=== PATIENT | male | born 1935 | race Caucasian/White ===

== ENCOUNTER 2018-02-08 02:01 | Inpatient (IN) ==
--- NOTE | 2018-02-08 02:43 | ED ---
HPI General Chief complaint: Extremity Problem,Nontraumatic Stated complaint: transfer from [facility]/medical Time Seen by Provider: 02/08/18 02:20 Source: patient History of Present Illness HPI narrative: The patient is an 82 year old male who presents to the [facility] emergency department with a history of developing foot pain after returning from dinner last night. The patient reports that the pain became gradually worse with time until it was severe. 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 He reports that he had another procedure to his vasculature of the left leg a few months later. He reports that the first procedure was done in May and since then he has had chronic numbness to the left foot. He reports that his vascular surgeon is Dr. Cantu. The patient reports that he went to [facility] emergency department regarding the symptoms and was diagnosed with an arterial occlusion. Dr. Cantu was called and explained that he is on vacation and would need the patient transferred someplace where another vascular surgeon is practicing. The patient was accepted in transfer by Dr. Diaz, the vascular surgeon vegetable scullion. Prior to arrival, the patient was placed on heparin as a drip and was continued on this medication in route to this facility. On review of systems otherwise, the patient denies having any known recent fevers, cough, congestion, neck pain, chest pain, shortness of breath, abdominal pain, vomiting , diarrhea, urinary symptoms, or other neurologic symptoms. Related Data Home Medications Medication Instructions Recorded Confirmed aspirin 81 mg PO DAILY 02/08/18 02/08/18 clopidogrel [Plavix] 75 mg PO DAILY 02/08/18 02/08/18 lisinopril 10 mg PO DAILY 02/08/18 02/08/18 rosuvastatin [Crestor] 5 mg PO DAILY 02/08/18 02/08/18 sertraline [Zoloft] 25 mg PO DAILY 02/08/18 02/08/18 Allergies Allergy/AdvReac Type Severity Reaction Status Date / Time No Known Allergies Allergy Verified 02/08/18 02:07 Review of Systems ROS: all other systems reviewed are negative [facility] Medical History Medical History CAD (coronary artery disease) (Acute) COPD (chronic obstructive pulmonary disease) (Acute) CVA (cerebral vascular accident) (Acute) Hyperlipidemia (Acute) Hypertension (Acute) MRSA (methicillin resistant Staphylococcus aureus) (Acute) PAD (peripheral artery disease) (Acute) PNA (pneumonia) (Acute) Thyroid disorder (Acute) Surgical History Surgical History H/O vasectomy (Acute) History of esophagogastroduodenoscopy (EGD) (Acute) History of herniorrhaphy (Acute) Stented coronary artery (Acute) Family History Family History Other Diabetes mellitus Social History Social History Substance History: No History of Abuse Smoking Status: Former smoker How Often Do You Have a Drink Containing Alcohol: 2 to 4 times a month Recent Travel in [facility] within the Last 8 Weeks: No Recent Out of Country Travel within the Last 8 Weeks: No Immunization History Tetanus Immunization: Unsure Exam Narrative Exam Narrative: He denies having any pain in his foot currently. Const General: cooperative, no acute distress and well developed Nutritional Appearance: well nourished Orientation: alert, awake and oriented x3 [facility] Head: normocephalic and atraumatic Nose: no nasal discharge and no epistaxis Mouth: moist mucous membranes Eyes Sclera: normal sclerae Pupils: PERRL Neck Neck: no meningeal signs, trachea midline and no JVD Resp Effort & Inspection: no use of accessory muscles Auscultation: clear to auscultation bilaterally Cardio Rate: regular rate Rhythm: regular rhythm Heart Sounds: no murmurs GI Inspection: non-distended Palpation: soft, no hepatosplenomegaly and nontender Skin General: dry skin (warm) Neuro General: alert, awake, oriented x3 and other (Grossly nonfocal. ) Speech: speech normal Motor: no movement abnormalities noted Extrem General: no calf tenderness, no clubbing, no cyanosis, no edema and other (On examination of the patient's bilateral feet the left foot is more pale compared to the right. The patient has no palpable pulse in the dorsalis pedis or posterior tibial on the left. The patient has a palpable pulse in the right foot. The patient denies having any significant pain. A Doppler was done of the foot. The patient has no dopplerable pulse of the dorsalis pedis, however there is a pulse audible with Doppler in the posterior tibial. Patient's cap refill is prolonged in the left foot compared to the right.) Psych Mood: congruent mood Affect: normal affect Judgment: judgment good Course Consultations Consultation #1: The patient's case including history, pertinent physical examination findings, and laboratory studies were discussed with Dr. Diaz, the vascular surgeon who accepted the patient in transfer from [facility]. He requested that the patient be admitted to the hospitalist service and he will see the patient in consultation. Time: 02:38 Initial Documented Vital Signs Temperature 98.5 F 02/08/18 02:07 Pulse Rate 60 02/08/18 02:07 Respiratory Rate 16 02/08/18 02:07 Blood Pressure 184/93 H 02/08/18 02:07 Pulse Oximetry 96 02/08/18 02:07 Last Documented Vital Signs Temperature 97.6 F 02/08/18 16:00 Pulse Rate 55 L 02/08/18 16:00 Respiratory Rate 16 02/08/18 16:00 Blood Pressure 137/73 02/08/18 16:00 Pulse Oximetry 93 L 02/08/18 16:00 Medical Decision Making MDM Narrative Medical decision making narrative: During the course of the patient's emergency department visit, the patient's history, examination, and differential diagnosis were reviewed with the patient. The patient was placed on a cardiac rehabilitation program director with oximetry and frequent blood pressure monitoring. The patient had IV access obtained and blood work sent for analysis. A diagnostic evaluation was started regarding the patient's pallor to the left foot with loss of pulse to the dorsalis pedis. The patient's records from the other facility were reviewed. The patient had a CBC at [facility] that showed a white count of 8, hemoglobin 13.9, platelets 144, BMP is remarkable for sodium of 139, potassium 3.8, chloride 100, CO2 25, BUN 19 , creatinine 0.76, PT 13.9, INR 1.2, PTT 33.4, liver function tests were within normal limits. The patient is on a heparin drip currently. The patient had a Doppler of his pulses of the left foot done which revealed a dopplerable pulse of the posterior tibial, however no dopplerable pulse of the dorsalis pedis. A call was placed out to who did agree to see the patient in consultation requested that the patient be admitted to the hospitalist service. Dr. Feezor requested that no additional imaging be ordered at this time until he sees the patient and decides how to proceed. The patient's case including history, pertinent physical examination findings, and laboratory studies were discussed with Dr. Vargas. It was agreed that the patient would be admitted to the hospitalist service. The patient's results were discussed with the patient, including the plan of care. I explained that further testing and/ or monitoring is indicated based on the patient's history, examination, and/ or laboratory findings. Therefore, I recommended admission for additional evaluation. The patient expressed understanding and was agreeable with this plan. The patient was admitted to the hospital in guarded condition and sent to a bed under the care of the [facility] service. Medical Screen Exam Complete: Yes Emergency Medical Condition: Yes Differential Diagnosis Differential Diagnosis: Peripheral arterial thrombosis, versus emboli, versus partial occlusion Medical Records Medical records reviewed: Yes I reviewed the patient's medical records. Lab Data Lab results reviewed: Yes I reviewed the patient's lab results. Result diagrams: 02/08/18 09:15 Lab Results 02/08/18 02/08/18 02/08/18 Range/Units 04:35 09:15 10:03 PT 12.0 H (9.8-11.6) sec INR 1.2 Ratio APTT 83.0 H 111.1 H* D (23.4-31.7) sec Sodium 137 (136-145) meq/L Potassium 4.1 (3.5-5.1) meq/L Chloride 108 H (98-107) meq/L Carbon Dioxide 21.1 (21.0-32.0) meq/L Anion Gap 8 (5-15) meq/L BUN 16 (7-18) mg/dL Creatinine 0.72 (0.60-1.30) mg/dL Estimated GFR Greater than 89 (>89) mL/min Random Glucose 78 (74-106) mg/dL Calcium 7.9 L (8.5-10.1) mg/dL Imaging Data Radiologist's impression: Lower Extremity Ultrasound 02/08/18 00:00 CONCLUSION: 1. Venous mapping as above. Venous Doppler Study 02/08/18 00:00 CONCLUSION: 1. No evidence of DVT. Discharge Plan Discharge Disposition Patient Disposition: ED Admit(ED Internal Use Only) Discharge Order Discharge Orders: ED Use Only Admit Order (Routine); Ordered 02/08/18 Ordered By: Bita Goncalves Discharge Details Diagnosis: Peripheral artery occlusion Physicians Team ED Provider: Bita Goncalves Attending Provider: Carla Garrett Other Providers: Diogenes Diaz Status ED Status: Left Department Discharge Information Discharge Date/Time: 02/08/18 06:35
[2018-02-08] MEDS ORDERED: Morphine Inj 4 MG/ML Vial IV.PUSH PRN (04:21)
[2018-02-08] MEDS ORDERED: Bisacodyl 10 MG Supp RECTAL PRN (04:22)
[2018-02-08] MEDS ORDERED: Acetaminophen 325 MG Tablet PO PRN (04:22)
[2018-02-08] MEDS: Heparin Drip 25,000 UNIT/250 ML BAG IV.CONT PRN ×2 (04:36→15:00)
[2018-02-08] MEDS: Sod Chloride 0.9% Inj 1,000 ML IV.CONT SCH ×2 (04:36→19:44)
--- NOTE | 2018-02-08 04:37 | P.HP ---
History of Present Illness Service: [facility] Primary Care Physician: Kayleigh Lewis History of Present Illness: 82-year-old male with a past medical history significant for, hypertension and hyperlipidemia presents to the emergency department as a transfer from [facility] for the evaluation of left foot pain. The patient has a history of left popliteal aneurysm rupture that was urgently repaired in [place] [address] Walter Cantu. The patient is unsure of exactly what was done but knows he had a bypass and believes it is a femoropopliteal bypass. He reports that yesterday evening when he was walking in from having dinner he developed acute onset left sided foot pain that was unbearable. His daughter who is an ER nurse, evaluated his foot and stated that it was cold, white and there was no DP pulse. The patient and his family believes that he had palpable pulses prior to this incident. The patient states the pain in his foot has subsided. He has full range of motion of the toes ankle and calf. He denies any other associated symptoms such as chest pain or shortness of breath. No abdominal pain. No nausea/vomiting/diarrhea. No fever/chills. Inpatient Certification: I certify that the inpatient services were ordered in accordance with Medicare regulations governing the order. 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 - Medical History Medical History: Medical History (Last Reviewed 02/08/18 @ 02:41 by Bita Goncalves MD) CAD (coronary artery disease) COPD (chronic obstructive pulmonary disease) CVA (cerebral vascular accident) Hyperlipidemia Hypertension MRSA (methicillin resistant Staphylococcus aureus) PAD (peripheral artery disease) PNA (pneumonia) Thyroid disorder - Surgical History Surgical History: Surgical History (Last Updated 02/08/18 @ 04:30 by Ayesha Vargas MD) H/O vasectomy History of esophagogastroduodenoscopy (EGD) History of herniorrhaphy Status post femoral-popliteal bypass surgery Stented coronary artery - Family History Family History: Family History (Last Updated 02/08/18 @ 04:30 by Ayesha Vargas MD) Other Diabetes mellitus - Tobacco History Smoking Status: Former smoker - Alcohol History How Often Do You Have a Drink Containing Alcohol: 2 to 4 times a month - Substance Use History Substance History: No History of Abuse - Travel History Recent Travel in the [place] Within the Last 8 Weeks: No Recent Travel Out of the Country Within the Last 8 Weeks: No - Immunization History Tetanus Immunization: Unsure Medications and Allergies Active Medications: Active Medications Heparin Sodium/Dextrose (Heparin/D5w 25,000 U/250 Ml) 25,000 unit in 250 mls @ 0 mls/hr IV.CONT TITRATE PRN; Protocol PRN Reason: Per Protocol Allergies Allergy/AdvReac Type Severity Reaction Status Date / Time No Known Allergies Allergy Verified 02/08/18 02:07 Home Medications Medication Instructions Recorded Confirmed Type aspirin 81 mg PO DAILY 02/08/18 02/08/18 History clopidogrel [Plavix] 75 mg PO DAILY 02/08/18 02/08/18 History lisinopril 10 mg PO DAILY 02/08/18 02/08/18 History rosuvastatin [Crestor] 5 mg PO DAILY 02/08/18 02/08/18 History sertraline [Zoloft] 25 mg PO DAILY 02/08/18 02/08/18 History Exam Vital signs: Vital Signs 02/08/18 02:07 Temperature 98.5 F Pulse Rate 60 Respiratory Rate 16 Blood Pressure 184/93 H Pulse Oximetry 96 Intake & Output 02/07/18 02/07/18 02/08/18 06:59 18:59 06:59 Weight 61.235 kg Narrative: Gen.: No acute distress Head: Normocephalic. Atraumatic. EENT: Pupils equal round and reactive to light. Nose without drainage. Airway intact. Throat without injection. Cardiovascular: Regular rate and rhythm. No murmurs, rubs or gallops. Respiratory: Lungs clear to auscultation bilaterally. No wheezes or rhonchi. Abdomen: Soft, nontender, nondistended. No peritoneal signs. Musculoskeletal: No gross deformities. No edema. Left foot mildly pale. No Dopplerable or palpable DP pulse. Full range of motion of the foot and left lower extremity. Skin: No obvious rashes or erythema. Neuro: Sensory and motor grossly intact. Cranial nerves II through XII grossly intact. Caprini VTE Risk Assessment Caprini VTE Risk Assessment: Moderate/High Risk (score >= 2) Caprini Risk Assessment Model: Point Value = 1 Point Value = 2 Point Value = 3 Point Value = 5 Age 41-60 Minor surgery BMI > 25 kg/m2 Swollen legs Varicose veins or History of unexplained or recurrent spontaneous Oral contraceptives or hormone replacement Sepsis (< 1 month) Serious lung disease, including pneumonia (< 1 month) Abnormal pulmonary function Acute myocardial infarction Congestive heart failure (< 1 month) History of inflammatory bowel disease Medical patient at bed rest Age 61-74 Arthroscopic surgery Major open surgery (> 45 min) Laparoscopic surgery (> 45 min) Malignancy Confined to bed (> 72 hours) Immobilizing plaster cast Central venous access Age >= 75 History of VTE Family history of VTE Factor V Leiden Prothrombin [id number] Lupus anticoagulant Anticardiolipin antibodies Elevated serum homocysteine Heparin-induced thrombocytopenia Other congenital or acquired thrombophilia Stroke (< 1 month) Elective arthroplasty Hip, pelvis, or leg fracture Acute spinal cord injury (< 1 month) Prophylaxis Regimen: Total Risk Factor Score Risk Level Prophylaxis Regimen 0-1 Low Early ambulation 2 Moderate Order ONE of the following: *Sequential Compression Device (SCD) *Heparin 5000 units SQ BID 3-4 Higher Order ONE of the following medications: *Heparin 5000 units SQ TID *Enoxaparin/Lovenox 40 mg SQ daily (WT < 150 kg, CrCl > 30 mL/min) *Enoxaparin/Lovenox 30 mg SQ daily (WT < 150 kg, CrCl > 10-29 mL/min) *Enoxaparin/Lovenox 30 mg SQ BID (WT < 150 kg, CrCl > 30 mL/min) AND/OR *Sequential Compression Device (SCD) 5 or more Highest Order ONE of the following medications: *Heparin 5000 units SQ TID (Preferred with Epidurals) *Enoxaparin/Lovenox 40 mg SQ daily (WT < 150 kg, CrCl > 30 mL/min) *Enoxaparin/Lovenox 30 mg SQ daily (WT < 150 kg, CrCl > 10-29 mL/min) *Enoxaparin/Lovenox 30 mg SQ BID (WT < 150 kg, CrCl > 30 mL/min) AND *Sequential Compression Device (SCD) Assessment and Plan - Plan Assessment/plan: 1. Left foot pain/pallor Concern for arterial occlusion given patient's history of left lower extremity bypass surgery in May 2017 Vascular surgery consulted, appreciate assistance Per Dr. Diaz's recommendations, no additional imaging studies will be done at this time Heparin drip per vascular surgery recommendations 2. Coronary artery disease Status post stent placement in 2004 Holding aspirin and Plavix until cleared by vascular surgery 3. Hypertension/hyperlipidemia Continue home lisinopril and Crestor FEN N.p.o. NS at 70 cc/hour Electrolytes: Reviewed from lab work done at [facility], will continue to monitor Heparin drip
[2018-02-08 05:01] LABS: INR 1.2 Ratio
--- NOTE | 2018-02-08 07:36 | P.CONVS ---
History of Present Illness Service: vascular surgery Consult date: 02/08/18 Reason for Consult: L LE ischemia Primary Care Provider: Kayleigh Lewis Chief Complaint: 82 yo man with L LE pain History of Present Illness: 82 yo male with L LE bypass (surgically revised x 1) earlier in 2018 for popliteal aneurysm who had abrupt onset of L LE pain last night. motor intact. Presented to OSH and transferred up on hep gtt. At present no foot pain but had pain meds last night and hasn't ambulated yet. Has been told that he had AAA duplex that was negative. 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 - Medical History Medical History: Medical History (Last Reviewed 02/08/18 @ 07:32 by Diogenes Diaz MD) CAD (coronary artery disease) Hyperlipidemia Hypertension PAD (peripheral artery disease) - Surgical History Surgical History: Surgical History (Last Reviewed 02/08/18 @ 07:32 by Diogenes Diaz MD) H/O vasectomy History of esophagogastroduodenoscopy (EGD) History of herniorrhaphy Status post femoral-popliteal bypass surgery Stented coronary artery - Family History Family History: Family History (Last Updated 02/08/18 @ 04:30 by Ayesha Vargas MD) Other Diabetes mellitus - Tobacco History Smoking Status: Former smoker - Alcohol History How Often Do You Have a Drink Containing Alcohol: 2 to 4 times a month - Substance Use History Substance History: No History of Abuse - Travel History Recent Travel in the [place] Within the Last 8 Weeks: No Recent Travel Out of the Country Within the Last 8 Weeks: No - Immunization History Tetanus Immunization: Unsure Medications and Allergies Active Medications: Active Medications Acetaminophen (Tylenol) 650 mg PO Q4H PRN PRN Reason: Temp > 100.4 Al Hydroxide/Mg Hydroxide (Milk Of Magnmarnie Liq) 30 ml PO Q12H PRN PRN Reason: Mild Constipation Atorvastatin Calcium (Lipitor) 10 mg PO DAILY ZHAO Bisacodyl (Dulcolax Supp) 10 mg RECTAL DAILY PRN PRN Reason: SEVERE CONSITIPATION Heparin Sodium/Dextrose (Heparin/D5w 25,000 U/250 Ml) 25,000 unit in 250 mls @ 0 mls/hr IV.CONT TITRATE PRN; Protocol PRN Reason: Per Protocol Last Titration: 02/08/18 06:28 Dose: 900 units/hr, 9 mls/hr Sodium Chloride (Ns Inj) 1,000 mls @ 70 mls/hr IV.CONT .[id number] [facility] Last Admin: 02/08/18 04:36 Dose: 70 mls/hr Lactulose (Lactulose Liq) 30 ml PO DAILY PRN PRN Reason: SEVERE CONSITIPATION Lisinopril (Prinivil) 10 mg PO DAILY [facility] Morphine Sulfate (Morphine Inj) 4 mg IV.PUSH Q4H PRN PRN Reason: pain 6-10 Ondansetron HCl (Zofran Inj) 4 mg IV.PUSH Q6H PRN PRN Reason: NAUSEA OR VOMITING Senna/Docusate Sodium (Sujatha-Colace) 1 tab PO BID [facility] Sennosides (Senokot) 17.2 mg PO Q12H PRN PRN Reason: Moderate Constipation Sertraline HCl (Zoloft) 25 mg PO DAILY [facility] Sodium Chloride (Ns Flush) 2 ml IV.FLUSH BID [facility] Sodium Chloride (Ns Flush) 2 ml IV.FLUSH PRN PRN PRN Reason: FLUSH AFTER USING IV ACCESS Allergies Allergy/AdvReac Type Severity Reaction Status Date / Time No Known Allergies Allergy Verified 02/08/18 02:07 Home Medications Medication Instructions Recorded Confirmed Type aspirin 81 mg PO DAILY 02/08/18 02/08/18 History clopidogrel [Plavix] 75 mg PO DAILY 02/08/18 02/08/18 History lisinopril 10 mg PO DAILY 02/08/18 02/08/18 History rosuvastatin [Crestor] 5 mg PO DAILY 02/08/18 02/08/18 History sertraline [Zoloft] 25 mg PO DAILY 02/08/18 02/08/18 History Physical Exam Vital Signs / I&O: Vital Signs 02/08/18 02:07 02/08/18 04:35 Temperature 98.5 F Pulse Rate 60 60 Respiratory Rate 16 16 Blood Pressure 184/93 H 164/79 H Pulse Oximetry 96 97 Intake & Output 02/07/18 02/08/18 02/08/18 18:59 06:59 18:59 Weight 61.235 kg Neuro: alert, no distress HEENT: NC/AT Neck: no JVD Heart: reg rate Lungs: clear Abdomen: nontender, no masses Vascular: B LE incisions on medial legs well healed. Popliteal fullness B palpable R PT. No palpable L pedal pulses Extremities: motor intact, no wounds Laboratory Results - last 24 hr 02/08/18 04:35 PT 12.0 H INR 1.2 APTT 83.0 H Assessment and Plan - Assessment (1) Popliteal artery aneurysm, bilateral Code(s): I72.4 - Aneurysm of artery of lower extremity Status: Acute - Plan I suspect he had occlusion of a LEFT LE bypass done for popliteal aneurysmal disease. No motor dysfunction. I would recommend a LEFT leg angiogram and LE vein survey to investigate the reconstruction options. However, if he continues to have no motor dysfunction and can ambulate, he may not need another bypass. 1. ABIs - ordered 2. L LE angiogram - scheduled for today in clinical lab technologist with either myself or Dr. Bobo 3. LE vein survey - ordered 4. continue hep gtt Diogenes Diaz MD FACS [facility]SVS RPVI [phone]
[2018-02-08 10:00] LABS: Anion Gap 8 meq/L (5-15); Blood Urea Nitrogen 16 mg/dL (7-18); Calcium 7.9 mg/dL (8.5-10.1); Carbon Dioxide 21.1 meq/L (21.0-32.0); Chloride 108 meq/L (98-107); Glomerular Filtration Rate Greater Than 89 mL/min (>89); Glucose,Random 78 mg/dL (74-106); Potassium 4.1 meq/L (3.5-5.1); Sodium 137 meq/L (136-145)
[2018-02-08] MEDS: Senna/Docusate Sodium 8.6/50 MG Tablet PO SCH ×2 (10:06→20:30)
[2018-02-08] MEDS: Sertraline 50 MG Tablet PO SCH (10:06)
[2018-02-08] MEDS: Lisinopril 10 MG Tablet PO SCH (10:06)
--- NOTE | 2018-02-08 10:41 | US ---
EXAM DATE: 02/08/2018 10:36 AM EST AGE/SEX: 82 years / Male INDICATIONS: Left lower extremity ischemia. Possible revision of the left lower extremity bypass gr aft. CLINICAL DATA: This is the patient's initial encounter. Patient reports that signs and symptoms have been present for 1 day and indicates a pain score of 6/10. MEDICAL/SURGICAL HISTORY: Peripheral artery disease. Hypercholesterolemia. Hypertension. Cor onary artery disease. Popliteal artery aneurysm. Coronary artery stent. Vasectomy. Femoral-poplite al bypass surgery with revision in early 2017. EGD. DIFFICULT TO SEE POP V ON THE LEFT. COMPARISON: No prior exams available for comparison. TECHNIQUE: Venous ultrasound of both lower extremities was performed from the inguinal ligament to t he proximal calf. Real-time, color Doppler and spectral tracing, compression and augmentation techni ques were used. FINDINGS: Right Leg: Normal compression of the deep venous system from the inguinal region to the proximal олег f. No echogenic clot is seen. Normal response of the venous system to augmentation and respiration. Stephane villagran has a known popliteal artery aneurysm measuring 7.3 x 3.5 cm without flow. The aneurysm has be en bypassed. Left Leg: Normal compression of the deep venous system from the inguinal region to the proximal calf . No echogenic clot is seen. Normal response of the venous system to augmentation and respiration. Tim hoover has a known left popliteal artery aneurysm measuring 7.6 x 5.2 cm without flow. The aneurysm ho s been bypassed. Other: None. CONCLUSION: 1. No evidence of DVT. Electronically signed by: Michael eRhman MD Board Certified Radiologist 02/08/2018 10:39 AM EST
--- NOTE | 2018-02-08 10:42 | US ---
EXAM DATE: 02/08/2018 10:40 AM EST AGE/SEX: 82 years / Male INDICATIONS: Left lower extremity ischemia. Possible revision of the left lower extremity bypass gr aft. CLINICAL DATA: This is the patient's initial encounter. Patient reports that signs and symptoms have been present for 1 day and indicates a pain score of 6/10. MEDICAL/SURGICAL HISTORY: Peripheral artery disease. Hypercholesterolemia. Hypertension. Cor onary artery disease. Left popliteal artery aneurysm. Coronary artery stent. Vasectomy. Femoral-po pliteal bypass surgery with revision in early 2017. EGD. COMPARISON: [facility] [place], VENOUS DOPPLER LEG BI, 02/08/2018. . MEASUREMENTS: RIGHT THIGH: Proximal:__2 mm Mid:__ 1 mm Distal:__1 mm LEFT THIGH: Proximal:__5 mm Mid:__Non-visualized Distal:__1 mm RIGHT CALF: Proximal:__2 mm Mid:__3 mm Distal:__3 mm LEFT CALF: Proximal:__Non-visualized Mid:__Non-visualized Distal:__Non-visualized FINDINGS: The venous system of the lower extremities are patent by color Doppler imaging. Measurements of the leg veins (in mm) are listed above. CONCLUSION: 1. Venous mapping as above. Electronically signed by: Michael Rehman MD Board Certified Radiologist 02/08/2018 10:41 AM EST
[2018-02-08] MEDS ORDERED: Heparin/NS PF Inj 1,000 ML ONE (10:47)
[2018-02-08] MEDS ORDERED: fentaNYL Citrate Inj 100 MCG/2 ML Ampul ONE (10:48)
[2018-02-08] MEDS ORDERED: Iohexol 350 MG/ML 100 ML Vial (for Cath Lab) IVCONTRAST ONE (12:00)
[2018-02-08] MEDS ORDERED: Heparin 10,000 UNITS/10 ML Vial (for IV use) ONE (12:05)
[2018-02-08] MEDS ORDERED: Heparin/NS PF Inj 500 ML ONE (12:07)
[2018-02-08] MEDS ORDERED: Heparin Drip 25,000 UNIT/250 ML BAG IV.CONT ONE (12:58)
--- NOTE | 2018-02-08 13:24 | CATHPROC ---
[employer] HIS Report Study Information Study Number Admission Scheduled Start Study Start [id number] Feb 08 2018 2:54AM 02/08/2018 Feb 08 2018 10:52AM [place] [facility] Cardiac Pacer/ICD Admit Source Facility Department Emergency department [facility] - Senior Systems Software Engineer Physician and Clinical Staff Initial Miguel Angel Costa Air Brake Tester Ayesha Dupree,ORI Additional Miguel Angel Costa Recorder Jesus Gonzales,RT(R) Anny Dorantes,RT(R) (BS) Procedures Performed Procedure Location (Site) Vessel Name Angiogram (manual) Abd Aorta (A3) Aorta Angiogram (manual) Popliteal L (L10) Popliteal Angiogram (manual) SFA (left) Femoral Art Angiogram (manual) Tib, Ant. (left) Popliteal Wire insertion Fem Art (right) Femoral Art Equipment Time Treasury Assistant Description Size Mfg Part Number Used/Scraped PERCLOSE, PRO GLIDE CLOSER 12:50 [employer] FR 6 [id number] *[id number] Used DEVICE [id number] 12:09 [employer] WIRE, SPARTACORE 5*300CM 300CM Used *[id number] 11:13 [employer] WIRE, SUPERCORE 190CM Used *[id number] 11:13 ANGIO-DYNAMICS OMNI FLUSH 65CM CATHETER FR 4 Used *[id number] INTRODUCER SET, 11:13 [employer] FR 5 [id number] *[id number] Used MICROPUNCTURE STIFF CATHETER, CXI SUPPORT [id number] 12:07 COOK/JENNIFER .014 Used STRAIGHT .014 150CM 04 WIRE, GUIDE APPROACH HYDRO [id number] 12:07 COOK/JENNIFER 300CM Used ST *[id number] 11:13 Imgur INDUSTRIES PACK, CCL CUSTOM * Used *[id number] EXPORTAP 12:14 MEDTRONIC CATHETER, EXPORT ASPIRATON Used *[id number] PROBE COVER, STERILE [id number] 11:13 Sunpreme * Used ULTRASOUND W/ GEL *[id number] 11:13 NAMIC MANIFOLD, 4 PORT * Used *[id number] 11:13 NYCOMED OMNIPAQUE, 300 MG, 150ML 150ML [id number] Used 11:13 NYCOMED OMNIPAQUE, 300 MG, 50ML 50ML [id number] Used [id number] 11:13 TERUMO MEDICAL SHEATH, FR5 TERUMO (10CM) FR 5 Used *[id number] 12:01 TERUMO MEDICAL/JENNIFER CATHETER, FR5 ANGLED 100CM FR 5 [id number] *[id number] Used SHEATH, FR6 PINNACLE [id number] 11:57 TERUMO MEDICAL/JENNIFER FR 6 Used DESTINATION 45CM *[id number] WIRE, ANGLED GLIDE .035 [id number] 11:13 TERUMO MEDICAL/JENNIFER 260CM Used 260CM *[id number] Equipment Model, Serial, Lot Number and Expiration Data Description Model Number Serial Number Lot Number Expiration Date CATHETER, CXI SUPPORT [id number] 01-16-2020 STRAIGHT .014 150CM CATHETER, EXPORT ASPIRATON [id number] 12-06-2019 PERCLOSE, PRO GLIDE CLOSER [id number] 10-14-2019 DEVICE WIRE, GUIDE APPROACH HYDRO [id number] 08-02-2020 History: Current Medications Medication Dosage/Unit Route Frequency Last Date/Time Taken ASA PLAVIX LISINOPRIL Statins (any) History: Allergies Allergy Reaction No Known Allergies History: Risk Factors Prior Valve Prior PCI Prior CABG Surgery No No No Cerebrovascular Peripheral Artery Chronic Lung On Dialysis Diabetes Disease Disease Disease No No Yes No No History: Stress Tests Stress or Imaging Studies Performed No History: Other Current Smoker Method No Cigarettes Labs Hgb (g/dl) Platelets (thousands) 11.60-17.00 150.00-450.00 13.9 144 BUN (mg/dl) Creatinine (mg/dl) BUN:Creatinine (1:x) 7.00-18.00 0.50-1.30 10.00-20.00 19 0.7 27.1 Na (meq/l) K (meq/l) 136.00-145.00 3.50-5.10 139 3.8 Medication Medication Total Dose (Bolus/Oral) Medication Total Dosage/Unit 1% XYLOCAINE 20 mL FENTANYL 50 mcg HEPARIN 3000 units VERSED 1 mg Medications (Bolus/Oral) Medication Time Given Dosage/Unit Administered By Reason 02/08/2018 11:29:40 1% XYLOCAINE 20 mL AM Patient arrived on 20 mL 1% XYLOCAINE in Right Groin via Subcutaneous. 02/08/2018 11:29:57 VERSED 1 mg Ayesha Dupree AM 1 mg VERSED given in lab by Ayesha Dupree, RN via Peripheral IV. 02/08/2018 11:30:00 FENTANYL 50 mcg Ayesha Dupree AM 50 mcg FENTANYL given in lab by Ayesha Dupree, RN in Left Forearm via Peripheral IV. 02/08/2018 12:06:55 HEPARIN 3000 units Ayesha Dupree PM 3000 units HEPARIN given in lab by Ayesha Dupree, RN via Peripheral IV. Ordered by Miguel Angel Bobo. Medication (Drip) Medication Time Given Dosage/Unit Concentration/Unit Diluent (ml) Solution HEPARIN DRIP 02/08/2018 1:00:11 PM 1000 units/hr 58244 units 250 D5W 1000 units/hr HEPARIN DRIP given in lab by Ayesha Dupree, ORI via Peripheral IV. Pump/Drip Flow = 10 ml/hr using D5[place] [address] units in 250 ml. Ordered by Miguel Angel Bobo. Started per Dr. Bobo. 02/08/2018 11:14:34 IV Solutions 0 mL (IV) 1000 NaCl .9 AM Patient arrived on IV Solutions in Left Forearm via Peripheral IV. Pump/Drip Flow = 20 ml/hr using Na Cl .9. Initial Case Assessment Cardiovascular HR Rhythm NIBP Chest Pain 56 Sinus 145/83 0 Edema Present Skin color Skin None Normal Warm Dry Circulatory - Right Pulses Dorsalis Pedis Posterior Tibial Femoral 2 2 2 Scale (0,1,2,3,4,d) Circulatory - Left Pulses Dorsalis Pedis Posterior Tibial Femoral 0 0 2 Scale (0,1,2,3,4,d) Neurological State Oriented to time-place- Alert Moves all extremities person Respiration - General Respiration Rate SpO2 (%) O2 (lpm) (B/min) 15 95 0 Final Case Assessment Cardiovascular HR Rhythm NIBP Chest Pain 55 100 158/85 0 Edema Present Skin color Skin None Normal Warm Dry Circulatory - Right Pulses Dorsalis Pedis Posterior Tibial Femoral 2 2 2 Scale (0,1,2,3,4,d) Circulatory - Left Pulses Dorsalis Pedis Posterior Tibial Femoral 0 0 2 Scale (0,1,2,3,4,d) Neurological State Oriented to time-place- Alert Moves all extremities person Respiration - General Respiration Rate SpO2 (%) O2 (lpm) (B/min) 18 100 0 Chronological Log Time Study Chronological Log 10:55:07 Patient arrived via Bed. 10:55:09 Patient Name, D.O.B, / Armband Verified By R.N. 10:55:10 Consent signed by the physician and the patient and verified by the Senior Systems Software Engineer staff. 10:55:11 Pre-op and post- op instructions given; patient acknowledges understanding of instructions. 10:56:34 Verbal Stimulation=2 Physical Stimulation=2 Airway=2 Respiration=2 TOTAL=8. (0=absent, 1=li mited, 2=present) 10:57:02 Patient has been NPO for More than 6Hrs. Vitals capture started with the following parameters, Patient=Adult, Interval=5 min, Initial Pr ahwrhq=256 mmHg, 10:59:01 Deflation Rate=5 mmHg, Cuff placed on Right Arm 10:59:37 VQJD=952/83 mmhg, SpO2=95.0 %, Pain=0, Susi=10, Lowe=2 11:05:12 HR=56 bpm, PSBN=106/76 mmhg, SpO2=97.0 %, Resp=10 B/min, Pain=0, Susi=10, Lowe=2 11:09:39 HR=51 bpm, HRTQ=034/80 mmhg, SpO2=95.0 %, Resp=13 B/min, Pain=0, Susi=10, Lowe=2 11:12:15 Reference ECG taken 11:14:07 Patient has been NPO for More than 6Hrs. 11:14:10 Skin Breakdown- general bruising from blood thinners. 11:14:11 Patient Warmer Placed on the Table. 11:14:12 Fredi Prominences Protected 11:14:13 A # 20 IV was noted in the Forearm (left). Grade = 0 11:14:34 Patient arrived on IV Solutions in Left Forearm via Peripheral IV. Pump/Drip Flow = 20 ml/h r using NaCl .9. 11:14:42 HR=58 bpm, DDBS=731/79 mmhg, SpO2=96.0 %, Resp=16 B/min, Pain=0, Susi=10, Lowe=2 11:15:07 History and physical on the chart or being dictated. Assessment: Initial Case, HR=56 BPM, Rhythm=Sinus, RQRB=473/83 mmhg, Chest Pain=0, Edema=None, Color=Normal, Skin = Warm, Dry Right Pulses: Sandeep Ped=2, Post Tib=2, Femoral=2 11:15:08 Left Pulses: Sandeep Ped=0, Post Tib=0, Femoral=2 Neurological: State=Alert, Ox3, CLINE Respiration: Resp=15 B/min, SpO2=95 %, O2=0 lpm 11:16:15 Bilateral groins prepped with 2% chlorhexidine, and draped after a 3 minute waiting time. 11:16:51 Pressure channel 2 zeroed. 11:17:12 MD paged 11:19:41 HR=52 bpm, AIWY=721/73 mmhg, SpO2=93.0 %, Resp=3 B/min, Pain=0, Susi=10, Lowe=2 11:23:48 MD responded 11:24:42 HR=56 bpm, ZDCZ=265/72 mmhg, SpO2=95.0 %, Resp=6 B/min, Pain=0, Susi=10, Lowe=2 11:28:54 MD arrived. Time Out. Correct patient, correct procedure, correct physician, labs, allergies, and equipment verified with roving tester laboratory 11:29:02 team present. Fire risk assesment completed (see hard stop sheet for coding). Time Out Conc urred by MD and individual staff in procedure. 11:29:37 HR=60 bpm, CJGG=283/90 mmhg, SpO2=98.0 %, Resp=12 B/min, Pain=0, Susi=10, Lowe=2 11:29:40 Patient arrived on 20 mL 1% XYLOCAINE in Right Groin via Subcutaneous. 11:29:57 1 mg VERSED given in lab by Ayesha Dupree, ORI via Peripheral IV. 11:30:00 50 mcg FENTANYL given in lab by Ayesha Dupree, RN in Left Forearm via Peripheral IV. 11:31:26 Access site was Right Femoral Artery. 11:31:33 A SHEATH, FR5 TERUMO (10CM) FR 5 was advanced into the Fem Art (right) using the Percutaneo us technique. A OMNI FLUSH 65CM CATHETER FR 4 was advanced over a wire. OMNIPAQUE, 300 MG, 150ML 150ML was us ed for 11:33:18 injections. 11:33:46 Abd Aorta (A3) angiogram, manually injected. 11:34:40 HR=69 bpm, NREL=827/83 mmhg, SpO2=77.0 %, Resp=12 B/min, Pain=0, Susi=10, Lowe=2 11:37:12 SFA (left) angiogram, manually injected. 11:37:20 Popliteal L (L10) angiogram, manually injected. 11:37:30 Tib, Ant. (left) angiogram, manually injected. 11:39:20 Case Start 11:39:41 HR=65 bpm, UBBL=620/80 mmhg, SpO2=90.0 %, Resp=13 B/min, Pain=0, Susi=10, Lowe=2 11:41:00 Tib, Ant. (left) angiogram, manually injected. 11:44:44 HR=67 bpm, GIHC=041/77 mmhg, SpO2=92.0 %, Resp=13 B/min, Pain=0, Susi=10, Lowe=2 11:49:41 HR=68 bpm, BTTE=612/89 mmhg, SpO2=98.0 %, Resp=18 B/min, Lowe=2 11:53:40 Dr. Bobo is reviewing images at this time. 11:54:40 HR=67 bpm, HYTG=369/84 mmhg, SpO2=98.0 %, Resp=10 B/min, Lowe=2 11:59:41 HR=87 bpm, XPXM=595/90 mmhg, SpO2=95.0 %, Resp=13 B/min, Lowe=2 12:00:38 A WIRE, SUPERCORE 190CM was inserted via Fem Art (right). A SHEATH, FR6 PINNACLE DESTINATION 45CM FR 6 was exchanged in the Fem Art (right). This was nec essary in 12:00:43 order to accomodate a larger catheter. 12:02:01 Activated Clotting Time Drawn A CATHETER, FR5 ANGLED 100CM FR 5 was advanced over a wire. OMNIPAQUE, 300 MG, 150ML 150ML was used for 12:02:49 injections. 12:04:40 HR=70 bpm, NUPK=916/87 mmhg, SpO2=99.0 %, Resp=12 B/min, Lowe=2 12:05:01 Wire removed 12:06:49 A WIRE, GUIDE APPROACH HYDRO ST 300CM was inserted via Fem Art (right). 12:06:55 3000 units HEPARIN given in lab by Ayesha Dupree RN via Peripheral IV. Ordered by Miguel Angel Bobo. After removing the current catheter a CATHETER, CXI SUPPORT STRAIGHT .014 150CM .014 was advanc ed over a 12:06:58 WIRE, GUIDE APPROACH HYDRO ST 300CM. 12:09:32 The previous wire was exchanged for a WIRE, SPARTACORE 5*300CM 300CM. 12:09:48 HR=75 bpm, LFVO=006/76 mmhg, SpO2=99.0 %, Resp=30 B/min, Lowe=2 12:13:42 Catheter was removed w/o difficulty A CATHETER, EXPORT ASPIRATON was advanced over a wire. OMNIPAQUE, 300 MG, 150ML 150ML was used for 12:14:09 injections. 12:14:44 HR=67 bpm, SMXF=877/75 mmhg, SpO2=99.0 %, Resp=7 B/min 12:17:10 Passes made with the export catheter in the left posterior tibial. 12:19:48 HR=64 bpm, DJNZ=647/78 mmhg, SpO2=99.0 %, Resp=16 B/min, Lowe=2 12:25:28 HR=62 bpm, DBJO=836/80 mmhg, SpO2=98.0 %, Resp=12 B/min, Lowe=2 12:29:44 HR=67 bpm, KFFG=056/85 mmhg, TjC1=435.0 %, Resp=16 B/min, Lowe=2 12:30:26 Dr. Bobo discussing case with patient family. 12:34:43 HR=72 bpm, CALZ=457/102 mmhg, HcA5=717.0 %, Resp=12 B/min, Lowe=2 12:40:29 HR=58 bpm, WMNO=562/87 mmhg, SpO2=99.0 %, Resp=4 B/min, Lowe=2 12:44:49 HR=58 bpm, OZTK=573/85 mmhg, SpO2=98.0 %, Resp=9 B/min, Lowe=2 12:49:52 HR=53 bpm, OHQI=224/76 mmhg, JkR2=376.0 %, Resp=11 B/min, Lowe=2 12:50:39 Wire removed 12:50:41 A WIRE, SUPERCORE 190CM was inserted via Fem Art (right). 12:54:19 PERCLOSE, PRO GLIDE CLOSER DEVICE FR 6 placement in the Fem Art (right) Assessment: Final Case, HR=55 BPM, Vnwjmo=434, SABL=056/85 mmhg, Chest Pain=0, Edema=None, [place] r=Normal, Skin = Warm, Dry Right Pulses: Sandeep Ped=2, Post Tib=2, Femoral=2 12:54:47 Left Pulses: Sandeep Ped=0, Post Tib=0, Femoral=2 Neurological: State=Alert, Ox3, CLINE Respiration: Resp=18 B/min, WuJ3=321 %, O2=0 lpm 12:54:53 HR=53 bpm, DGHL=330/85 mmhg, TiX8=638.0 %, Resp=12 B/min, Lowe=2 12:55:57 Catheter(s) removed without difficulty 12:56:10 Case End (Physician broke scrub) 12:56:13 Sterile dressing applied to site 12:56:15 No case complications noted. 12:56:17 Cine recording checked. 12:56:29 Bedside Report will be given. 12:56:32 Implantable Device card placed in patient's chart. 1000 units/hr HEPARIN DRIP given in lab by Ayesha Dupree, ORI via Peripheral IV. Pump/Drip Luan w = 10 ml/hr using 13:00:11 D[place] [address] units in 250 ml. Ordered by Miguel Angel Bobo. Started per Dr. Bobo. 13:00:35 HR=65 bpm, EULZ=844/88 mmhg, SpO2=94.0 %, Resp=19 B/min, Lowe=2 13:04:53 HR=56 bpm, BHNB=437/85 mmhg, SpO2=99.0 %, Resp=12 B/min, Lowe=2 13:10:54 Vitals capture stopped. 13:11:08 [facility] - Maximum Contrast Load Max Contrast Load (mL) 437.0 End Study - Radiation Exposure Fluoro Time Fluoro Dose (mGy) Cine Dose (uGym2) (minutes) 9.5 70 1388 End Study - Patient Disposition Complications Transferred To Telemetry Bed
--- NOTE | 2018-02-08 13:53 | P.OP ---
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 Ultrasound-guided access of the right common femoral artery 2. AIF angiogram 3. Left lower extremity third order angiogram 4. Suction thrombectomy of the left posterior tibial artery 5. Perclose of the right common femoral artery 6. Radiological supervision limitation 7. Conscious sedation Anesthesia: other (Local with moderate sedation) Surgeon: Miguel Angel Bobo MD Estimated blood loss (mL): 5 Operation and Findings: Findings 1. Patent infrarenal abdominal aorta, bilateral common iliac artery, bilateral external iliac artery, left common femoral artery, left superficial femoral artery 2. Patent left femoral to popliteal artery bypass with no evidence of significant stenosis. 3. Occluded left peroneal artery, left anterior tibial artery. I believe that this is chronic and happened during the initial insult from the popliteal aneurysm 4. Single vessel runoff to the left foot via the left posterior tibial artery. There is evidence of a nonocclusive thrombus in the portion and distal posterior tibial artery. I attempted suction thrombectomy with unsuccessful results. 5. The patient has multiphasic posterior tibial signal at the end of the procedure. Description of procedure The patient was taken to the operating room, laid supine on the OR table. After adequate sedation the patient was prepped and draped in the standard sterile fashion. Timeout was called with all members in the OR in agreement. 1 % lidocaine was injected on the right groin. Using ultrasound guidance we placed a 5 [place] sheath in the right common femoral artery. A catheter was placed in the infrarenal abdominal aorta and an AIF angiogram was performed. A catheter was placed in the left upper the artery and left lower extremity third order angiogram was performed. Patient was heparinized, 6 [place] destination sheath was placed with the tip into the left superficial femoral artery. I was able to cross the left posterior tibial artery thrombus using an 014 wire. Section from rectum was done. Completion angiogram was performed. At this point ALL wire catheter and sheath were removed hemostasis achieved by applying a Perclose device to the right common femoral artery. The patient tolerated the procedure well and was taken to recovery unit in stable condition. Conclusion This is a pleasant 82-year-old male with a past medical history of left lower extremity acute limb ischemia who underwent emergent open repair of his left popliteal artery aneurysm. He presents to the ER on 02/08/2018 with acute onset of left lower extremity pain. He was transferred to [facility] with a diagnosis of occluded left popliteal artery bypass. On my initial assessment, the patient was asymptomatic. On physical exam there was a monophasic left posterior tibial and dorsalis pedis signal. There was a multiphasic signal along the left femoral to popliteal bypass. I performed a diagnostic angiography and noted a patent bypass with evidence of thrombus in the left posterior tibial artery. The age of this thrombus is undetermined. I attempted suction thrombectomy and I was unsuccessful. I offered the patient catheter directed thrombolysis versus open thrombectomy and he refused. I also discussed these options with the family during the operation and the agreed with the patient decision. The patient remained asymptomatic after the procedure with a biphasic posterior left tibial signal. I will treat him with anticoagulation. I will schedule him for follow-up office visit in 1 month with an BONNIE.
[2018-02-09 04:27] VITALS: TEMP 97.9
[2018-02-09] MEDS: Sod Chloride 0.9% Inj 1,000 ML IV.CONT SCH ×2 (05:37→09:07)
[2018-02-09 08:49] LABS: Hematocrit 35.2 % (39.0-51.0); Hemoglobin 11.9 gm/dL (13.0-17.0); Mean Corpuscular HGB Conc 33.7 % (32.0-36.0); Mean Corpuscular Hemoglobin 30.7 pg (27.0-34.0); Mean Platelet Volume 8.4 fL (7.0-11.0); Platelet Count 117 th/mm3 (150-450); Red Blood Count 3.87 mil/mm3 (4.50-5.90); Red Cell Distribution Width 15.7 % (11.6-17.2); White Blood Count 7.1 th/mm3 (4.0-11.0)
[2018-02-09] MEDS: Senna/Docusate Sodium 8.6/50 MG Tablet PO SCH (09:04)
[2018-02-09] MEDS: Sertraline 50 MG Tablet PO SCH (09:04)
[2018-02-09] MEDS: Lisinopril 10 MG Tablet PO SCH (09:05)
[2018-02-09 09:10] VITALS: BP 127/61; PULSE 60; RESP 17; O2SAT 96
[2018-02-09 09:10] LABS: Anion Gap 8 meq/L (5-15); Blood Urea Nitrogen 15 mg/dL (7-18); Calcium 7.8 mg/dL (8.5-10.1); Carbon Dioxide 26.2 meq/L (21.0-32.0); Chloride 108 meq/L (98-107); Glomerular Filtration Rate Greater Than 89 mL/min (>89); Glucose,Random 72 mg/dL (74-106); Potassium 3.6 meq/L (3.5-5.1); Sodium 142 meq/L (136-145)
--- NOTE | 2018-02-09 09:44 | P.PNVS ---
Subjective Post Op Day #: 1 Subjective/Hospital Course: oozing from right groin puncture site denies any pain Objective Vital Signs / I&O: Vital Signs 02/08/18 13:30 02/08/18 16:00 02/08/18 20:00 Temperature 97.6 F 98.3 F Pulse Rate 55 L 60 Respiratory Rate 16 17 Blood Pressure 137/73 168/75 H Pulse Oximetry 93 L 93 L 95 02/09/18 00:00 02/09/18 00:15 02/09/18 04:00 Temperature 98.6 F 97.9 F Pulse Rate 63 64 Respiratory Rate 16 19 Blood Pressure 129/73 128/66 Pulse Oximetry 90 L 94 L 95 02/09/18 08:00 Temperature 97.9 F Pulse Rate 60 Respiratory Rate 17 Blood Pressure 127/61 Pulse Oximetry 96 Intake & Output 02/08/18 02/09/18 02/09/18 18:59 06:59 18:59 Intake Total 1300 / 1300 120 / 120 1000 / 1000 Output Total 275 / 275 475 / 475 Balance 1025 / 1025 -355 / -355 1000 / 1000 Weight 65.5 kg Intake: IV 1100 / 1100 1000 / 1000 Heparin/D5W 25,000 U/250 mL 25, 100 / 100 000 unit In 250 ml @ Per Protocol IV.CONT TITRATE PRN Rx #:[id number] NS Inj 1,000 ML @ 70 mls/hr IV. 1000 / 1000 1000 / 1000 CONT .[id number] Rx#:[id number] Oral 200 / 200 120 / 120 Output: Urine 275 / 275 475 / 475 Exam: LLE with biphasic PT signal Right groin with significant oozing Laboratory Results - last 24 hr 02/08/18 02/08/18 02/08/18 09:15 10:03 18:45 WBC RBC Hgb Hct MCV MCH MCHC RDW Plt Count MPV APTT 111.1 H* D 107.0 H* Sodium 137 Potassium 4.1 Chloride 108 H Carbon Dioxide 21.1 Anion Gap 8 BUN 16 Creatinine 0.72 Estimated GFR Greater than 89 Random Glucose 78 Calcium 7.9 L 02/08/18 02/09/18 02/09/18 21:30 00:30 07:19 WBC 7.1 RBC 3.87 L Hgb 11.9 L Hct 35.2 L MCV 91.0 MCH 30.7 MCHC 33.7 RDW 15.7 Plt Count 117 L MPV 8.4 APTT 96.6 H* 56.0 H D Sodium Potassium Chloride Carbon Dioxide Anion Gap BUN Creatinine Estimated GFR Random Glucose Calcium 02/09/18 02/09/18 07:19 07:19 WBC RBC Hgb Hct MCV MCH MCHC RDW Plt Count MPV APTT 36.4 H D Sodium 142 Potassium 3.6 Chloride 108 H Carbon Dioxide 26.2 Anion Gap 8 BUN 15 Creatinine 0.81 Estimated GFR Greater than 89 Random Glucose 72 L Calcium 7.8 L Assessment and Plan - Assessment (1) Popliteal artery aneurysm, bilateral Code(s): I72.4 - Aneurysm of artery of lower extremity Status: Acute - Plan s/p LLE angiogram POD #1 pressure held on right groin, hemostasis was achieved Patient is asymptomatic will DC home on Xarelto will schedule FU visit in two weeks with a RLE Duplex and BONNIE Patient was instructed to return to ER if symptoms recur
--- NOTE | 2018-02-09 09:53 | P.PNIM ---
Subjective Interval history: Patient with no acute distress. He is comfortable and does not have any complaints this morning. Physical Exam Vital signs: Vital Signs 02/08/18 13:30 02/08/18 16:00 02/08/18 20:00 Temperature 97.6 F 98.3 F Pulse Rate 55 L 60 Respiratory Rate 16 17 Blood Pressure 137/73 168/75 H Pulse Oximetry 93 L 93 L 95 02/09/18 00:00 02/09/18 00:15 02/09/18 04:00 Temperature 98.6 F 97.9 F Pulse Rate 63 64 Respiratory Rate 16 19 Blood Pressure 129/73 128/66 Pulse Oximetry 90 L 94 L 95 02/09/18 08:00 Temperature 97.9 F Pulse Rate 60 Respiratory Rate 17 Blood Pressure 127/61 Pulse Oximetry 96 Intake & Output 02/08/18 02/09/18 02/09/18 18:59 06:59 18:59 Intake Total 1300 / 1300 120 / 120 1000 / 1000 Output Total 275 / 275 475 / 475 Balance 1025 / 1025 -355 / -355 1000 / 1000 Weight 65.5 kg Intake: IV 1100 / 1100 1000 / 1000 Heparin/D5W 25,000 U/250 mL 25, 100 / 100 000 unit In 250 ml @ Per Protocol IV.CONT TITRATE PRN Rx #:[id number] NS Inj 1,000 ML @ 70 mls/hr IV. 1000 / 1000 1000 / 1000 CONT .[id number] Rx#:[id number] Oral 200 / 200 120 / 120 Output: Urine 275 / 275 475 / 475 Narrative: General patient in no acute distress HEENT extraocular movements are intact, clear oropharyngeal mucosa, no JVD Cardiovascular S1-S2 audible, RRR, no murmurs rubs or gallops Respiratory clear to auscultation bilaterally Abdomen soft, nontender, nondistended, normal bowel sounds Extremities difficult to palpate the pulses in the left foot. No edema. Warm distal extremities bilaterally. Neuro cranial nerves II through XII intact Results - Labs CBC & Chem 7: 02/09/18 07:19 02/09/18 07:19 Laboratory Results - last 24 hr 02/08/18 02/08/18 02/08/18 09:15 10:03 18:45 WBC RBC Hgb Hct MCV MCH MCHC RDW Plt Count MPV APTT 111.1 H* D 107.0 H* Sodium 137 Potassium 4.1 Chloride 108 H Carbon Dioxide 21.1 Anion Gap 8 BUN 16 Creatinine 0.72 Estimated GFR Greater than 89 Random Glucose 78 Calcium 7.9 L 02/08/18 02/09/18 02/09/18 21:30 00:30 07:19 WBC 7.1 RBC 3.87 L Hgb 11.9 L Hct 35.2 L MCV 91.0 MCH 30.7 MCHC 33.7 RDW 15.7 Plt Count 117 L MPV 8.4 APTT 96.6 H* 56.0 H D Sodium Potassium Chloride Carbon Dioxide Anion Gap BUN Creatinine Estimated GFR Random Glucose Calcium 02/09/18 02/09/18 07:19 07:19 WBC RBC Hgb Hct MCV MCH MCHC RDW Plt Count MPV APTT 36.4 H D Sodium 142 Potassium 3.6 Chloride 108 H Carbon Dioxide 26.2 Anion Gap 8 BUN 15 Creatinine 0.81 Estimated GFR Greater than 89 Random Glucose 72 L Calcium 7.8 L - Imaging Impressions Lower Extremity Ultrasound 02/08/18 00:00 CONCLUSION: 1. Venous mapping as above. Venous Doppler Study 02/08/18 00:00 CONCLUSION: 1. No evidence of DVT. Assessment and Plan - Plan 1. Left posterior tibial artery thrombus Patient is an 82-year-old male with a diagnosis of coronary artery disease status post stents nearly a decade ago, hypertension, dyslipidemia. The patient has a history of left lower extremity acute limb ischemia and underwent open repair of his left popliteal artery aneurysm. He presented to our emergency department with complaints of left foot pain and was diagnosed with occluded left popliteal artery bypass. Vascular surgery was consulted to evaluate the patient and patient was started on a heparin drip. The patient subsequently underwent angiography and there was a thrombus found in the left posterior tibial artery. Discussion was held the patient regarding catheter directed thrombolysis however the patient refused. He agreed to starting anticoagulation. The patient has remained asymptomatic over the past 24 hours he currently does not have any pain in his left foot. Vascular surgery has scheduled an appointment with him in the next 3-4 weeks and an BONNIE will be performed. The risks and benefits of being on anti-correlation were discussed with the patient and he agrees to proceed with anticoagulation. He will be given Xarelto 15 mg twice daily for 21 days then Xarelto 20 g p.o. daily. These instructions were given to the patient specifically by me. The patient understood these instructions. I discussed the case with vascular surgery who recommended stopping aspirin and continuing Plavix and Xarelto. 2. Coronary artery disease Continue Plavix, Xarelto started. Continue statin. 3. Hypertension Continue lisinopril. Patient can follow-up with his primary care doctor in the next 1-2 weeks.
== END 2018-02-09 10:36 | disposition home or self-care (01) | DRG 301 ==
LOC: EDBD → NEPE 02:01 → NEDA 02:54 → N07 06:41 → HCIS 12:20 → N07 16:30
PROVIDERS: ADMIT Hospitalist; ATTEND Hospitalist
PROC: ANGIOLE (2018-02-08 11:30)
CPT/HCPCS: 37184; 75625; 75710; 80048; 85002; 85027; 85610; 85730; 93965; 93970; 93998; 99152; 99153; 99285; C1757; C1760; C1769; C1887; C1893; G0269; J1644; J2250; J3010; J7030; Q9967